=== PATIENT | female | born 1935 | race Caucasian/White ===

== ENCOUNTER 2021-05-27 12:12 | Inpatient (IN) ==
[2021-05-27 13:36] LABS: Basophils % 0.3 % (0.0-0.8); Eosinophils # 0.1 10*3/uL (0.0-0.87); Eosinophils % 0.6 % (0.00-10.9); Hematocrit 44.9 VOL% (35.7-47.0); Hemoglobin 15.3 GM/DL (12.0-16.0); Immature Granulocytes % 0.4 %; Immature Granulocytes Absolute 0.05 #; Lymphocytes # 1.4 10*3/uL (1.4-4.0); Lymphocytes % 11.4 % (21.3-54.2); Mean Corpuscular HGB Conc 34.1 GM/DL (32-36); Mean Corpuscular Volume 95.7 FL (87-102); Mean Platelet Volume 9.3 FL (9.6-12.0); Monocytes % 7.7 % (1.7-12.7); Neutrophils % 79.6 % (38.7-73.9); Platelet Count 178 T/CUMM (130-400); Red Blood Count 4.69 MC/CUMM (3.8-5.5); Red Cell Distribution Width 11.9 % (9.3-17.3); White Blood Count 11.8 T/CUMM (4-12)
[2021-05-27 13:54] LABS: Calcium 9.9 MG/DL (8.5-10.1); Osmolality,Calculated 284.5 MOS/KG (273-304); Potassium 4.5 MMOL/L (3.5-5.1)
[2021-05-27] MEDS ORDERED: ACETAMINOPHEN 325 MG TABLET PO PRN (15:36)
[2021-05-27] MEDS ORDERED: GLUCAGON 1 MG VIAL IM PRN (15:36)
[2021-05-27] MEDS ORDERED: DEXTROSE 50% 25 GM/50 ML VIAL IV PRN (15:36)
[2021-05-27] MEDS ORDERED: BISACODYL 5 MG TABLET PO PRN (15:36)
[2021-05-27] MEDS ORDERED: SODIUM CHLORIDE 0.9% 1,000 ML IV SCH (16:00)
[2021-05-27] MEDS ORDERED: ROSUVASTATIN 10 MG TABLET PO SCH (21:00)
[2021-05-27] MEDS: DOCUSATE SODIUM 100 MG CAPSULE PO SCH (21:47)
[2021-05-27] MEDS: LACTATED RINGERS 1,000 ML IV SCH (23:44)
[2021-05-28] MEDS: HYDROmorphone 2 MG/1 ML VIAL IV PRN ×2 (02:34→15:50)
[2021-05-28] MEDS ORDERED: INFLUENZA VIRUS VACCINE 0.5 ML SYRINGE IM ONE (02:55)
[2021-05-28 06:01] LABS: Basophils % 0.4 % (0.0-0.8); Eosinophils # 0.6 10*3/uL (0.0-0.87); Hemoglobin 13.4 GM/DL (12.0-16.0); Immature Granulocytes % 0.4 %; Immature Granulocytes Absolute 0.04 #; Lymphocytes # 1.9 10*3/uL (1.4-4.0); Mean Corpuscular HGB Conc 32.7 GM/DL (32-36); Mean Corpuscular Volume 98.1 FL (87-102); Mean Platelet Volume 9.7 FL (9.6-12.0); Monocytes % 7.9 % (1.7-12.7); Neutrophils % 67.3 % (38.7-73.9); Platelet Count 175 T/CUMM (130-400); Red Blood Count 4.18 MC/CUMM (3.8-5.5); White Blood Count 10.7 T/CUMM (4-12)
[2021-05-28 06:17] LABS: Albumin 3.1 G/DL (3.4-5.0); Bilirubin,Total 2.3 MG/DL (0.20-1.00); Calcium 9.1 MG/DL (8.5-10.1); Osmolality,Calculated 285.5 MOS/KG (273-304); Total Protein 6.2 G/DL (6.4-8.2)
[2021-05-28] MEDS: LACTATED RINGERS 1,000 ML IV SCH ×2 (06:32→12:49)
[2021-05-28] MEDS ORDERED: PANTOPRAZOLE 40 MG TABLET PO SCH (09:00)
[2021-05-28] MEDS: DOCUSATE SODIUM 100 MG CAPSULE PO SCH ×2 (09:06→21:24)
[2021-05-28] MEDS: CHOLECALCIFEROL 1,000 UNIT TABLET PO SCH (09:06)
[2021-05-28] MEDS: MULTIVITAMIN (OCUVITE) TABLET PO SCH (09:06)
[2021-05-28] MEDS: CALCIUM (CARBONATE)/VITAMIN D 600 MG-400 UNIT TABLET PO SCH (09:06)
[2021-05-28] MEDS ORDERED: LIDOCAINE 2% 5 ML VIAL ONE (13:10)
[2021-05-28] MEDS ORDERED: propofoL 200 MG/20 ML VIAL IV ONE (13:10)
[2021-05-28] MEDS ORDERED: fentaNYL 100 MCG/2 ML VIAL ONE (13:10)
[2021-05-28] MEDS: LOSARTAN 25 MG TABLET PO SCH (13:24)
[2021-05-28] MEDS ORDERED: diphenhydrAMINE CAP 25 MG CAPSULE PO PRN (13:27)
[2021-05-28] MEDS ORDERED: BISACODYL 10 MG SUPP RECTAL PRN (13:27)
[2021-05-28] MEDS ORDERED: MAGNESIUM HYDROXIDE SUSP 30 ML UDCUP PO PRN (13:27)
[2021-05-28] MEDS ORDERED: LACTULOSE 20 GM/30 ML UDCUP PO PRN (13:27)
[2021-05-28] MEDS ORDERED: SEVOFLURANE 1 UNIT/15 MINUTE INH ONE (13:34)
[2021-05-28] MEDS ORDERED: PHENYLEPHRINE 1 MG/10 ML SYRINGE IV ONE (13:34)
[2021-05-28] MEDS ORDERED: ePHEDrine 50 MG/ML VIAL ONE (13:38)
[2021-05-28] MEDS: ONDANSETRON 4 MG/2 ML VIAL IV PRN ×2 (15:51→19:09)
[2021-05-28] MEDS ORDERED: ENOXAPARIN 40 MG/0.4 ML SYRINGE SUBCUT SCH (16:00)
[2021-05-28 17:08] LABS: Hemoglobin 13.5 GM/DL (12.0-16.0)
[2021-05-28 19:39] LABS: Hematocrit 42.4 VOL% (35.7-47.0); Hemoglobin 13.7 GM/DL (12.0-16.0)
[2021-05-28] MEDS ORDERED: FONDAPARINUX 2.5 MG/0.5 ML SYRINGE SUBCUT SCH (20:00)
[2021-05-28] MEDS: PANTOPRAZOLE 40 MG VIAL IV SCH (21:24)
[2021-05-29] MEDS: LACTATED RINGERS 1,000 ML IV SCH ×2 (02:54→08:24)
[2021-05-29 05:48] LABS: Basophils % 0.4 % (0.0-0.8); Eosinophils # 0.3 10*3/uL (0.0-0.87); Eosinophils % 3.2 % (0.00-10.9); Hematocrit 39.3 VOL% (35.7-47.0); Hemoglobin 12.8 GM/DL (12.0-16.0); Immature Granulocytes % 0.7 %; Immature Granulocytes Absolute 0.07 #; Lymphocytes # 2.5 10*3/uL (1.4-4.0); Lymphocytes % 23.7 % (21.3-54.2); Mean Corpuscular HGB Conc 32.6 GM/DL (32-36); Mean Corpuscular Volume 99.5 FL (87-102); Mean Platelet Volume 9.9 FL (9.6-12.0); Monocytes % 12.4 % (1.7-12.7); Neutrophils % 59.6 % (38.7-73.9); Platelet Count 161 T/CUMM (130-400); Red Blood Count 3.95 MC/CUMM (3.8-5.5); Red Cell Distribution Width 11.9 % (9.3-17.3); White Blood Count 10.5 T/CUMM (4-12)
[2021-05-29 06:06] LABS: Calcium 8.6 MG/DL (8.5-10.1); Osmolality,Calculated 282.3 MOS/KG (273-304); Potassium 3.8 MMOL/L (3.5-5.1)
[2021-05-29] MEDS ORDERED: MAGNESIUM SULF RIDER 2 GM/50 ML PREMIX IV ONE (08:00)
[2021-05-29] MEDS ORDERED: PANTOPRAZOLE 40 MG TABLET PO SCH (09:00)
[2021-05-29] MEDS: LOSARTAN 25 MG TABLET PO SCH (09:47)
[2021-05-29] MEDS: MULTIVITAMIN (OCUVITE) TABLET PO SCH (09:47)
[2021-05-29] MEDS: DOCUSATE SODIUM 100 MG CAPSULE PO SCH (09:47)
[2021-05-29] MEDS: CHOLECALCIFEROL 1,000 UNIT TABLET PO SCH (09:47)
[2021-05-29] MEDS: CALCIUM (CARBONATE)/VITAMIN D 600 MG-400 UNIT TABLET PO SCH (09:47)
[2021-05-29 11:20] VITALS: BP 167/71
[2021-05-29] MEDS: PANTOPRAZOLE 40 MG VIAL IV SCH (12:26)
== END 2021-05-29 15:15 | disposition home health service (06) | DRG 482 ==
LOC: SUATTDRO → N.ED 12:12 → N.EDINP 15:36 → N.3E 19:20
PROVIDERS: ADMIT Internal Medicine; ATTEND Internal Medicine